=== PATIENT | female | born 1975 | race Asian ===

== ENCOUNTER 2024-07-28 22:59 | Emergency (ER) | payer MEDICARE, MEDICAID ==
[~2024-07-28] VITALS: Ht 167.6 cm; Wt 65.0 kg
[2024-07-28] MEDS ORDERED: SODIUM CHLORIDE 0.9% 1000ML BAG (SEPSIS BOLUS) IV ONE (23:45)
[2024-07-28] MEDS ORDERED: PREDNISONE 20MG TABLET PO ONE (23:45)
[2024-07-28] MEDS ORDERED: AZITHROMYCIN 500MG/250ML 250 ML IV ONE (23:45)
[2024-07-28] MEDS ORDERED: ACETAMINOPHEN 325MG TABLET PO ONE (23:45)
[2024-07-29 00:10] VITALS: BP 176/102; TEMP 38.33640; O2SAT 96
[2024-07-29 00:12] VITALS: PULSE 100; RESP 16; O2SAT 96
[2024-07-29] MEDS: ALBUTEROL (0.083%) 2.5MG/3ML NEB HHN ONE (00:12)
[2024-07-29] MEDS ORDERED: ACET-2708 MT (01:00)
[2024-07-29] MEDS ORDERED: AZIT500T8 MT (01:00)
[2024-07-29] MEDS ORDERED: CEFTRIAXONE 1GM/50ML 50 ML IV ONE (01:00)
== END 2024-07-29 01:38 | disposition left against medical advice (07) ==
LOC: ER 22:59
DX: J18.9 Pneumonia, unspecified organism (principal); J45.909 Unspecified asthma, uncomplicated; Z88.6 Allergy status to analgesic agent
CPT/HCPCS: 99283; 71045; 94640; J7030; J7512